=== PATIENT | male | born 1980 | race Two or more races ===

== ENCOUNTER 2017-03-15 10:19 | Emergency (ER) | payer OTHER ==
[2017-03-15 10:33] VITALS: BMI 26.6
--- NOTE | 2017-03-15 11:33 | PDOC ---
History of Present Illness - General History Source: Patient Exam Limitations: No Limitations - History of Present Illness Occurred: reports: just prior to arrival Severity: reports: moderate Pain Location: reports: upper extremity (left index, left middle finger) Method of Injury: Yes: fall (unto metal on the floor, sustaining laceration to left palmar finger and left index palmar finger at work ) Modifying Factors: improves with: None Loss of Consciousness: no loss of consciousness Associated Symptoms (Fall): denies symptoms <Sonia Ricks - Last Filed: 03/15/17 11:19> <Gerry Reddy - Last Filed: 03/15/17 16:46> - General Chief Complaint: Injury Stated Complaint: LT FINGER LACERATION Time Seen by Provider: 03/15/17 10:55 Past History - Past Medical History Other medical history: denies - Psycho/Social/Smoking Cessation Hx Suicidal Ideation: No Smoking History: Never smoked Information on smoking cessation initiated: No Hx Alcohol Use: No Drug/Substance Use Hx: No Substance Use Type: None <Sonia Ricks - Last Filed: 03/15/17 11:19> <Gerry Reddy - Last Filed: 03/15/17 16:46> - Past Medical History Allergies/Adverse Reactions: Allergies Allergy/AdvReac Type Severity Reaction Status Date / Time Penicillins Allergy Verified 03/15/17 10:35 tetracycline Allergy Verified 03/15/17 10:35 Home Medications: Ambulatory Orders Clindamycin [Cleocin -] 450 mg PO TID #21 capsule 03/15/17 Review of Systems - Review of Systems Able to Perform ROS?: Yes Constitutional: No: Symptoms Reported HEENTM: No: Symptoms Reported Respiratory: No: Symptoms reported Cardiac (ROS): No: Symptoms Reported ABD/GI: No: Symptoms Reported : No: Symptoms Reported Integumentary: Yes: Other (left midde palmar finger flap laceration, left palmar index finger laceration) Neurological: No: Symptoms reported <Sonia Ricks - Last Filed: 03/15/17 11:19> *Physical Exam - Vital Signs Last Vital Signs Temp Pulse Resp BP Pulse Ox 98.6 F 110 H 19 148/92 100 03/15/17 10:32 03/15/17 10:32 03/15/17 10:32 03/15/17 10:32 03/15/17 10:32 - Physical Exam General Appearance: Yes: Appropriately Dressed Comments:: 03/15/17 11:35 radial pulse left 2 + Extremity: positive: Normal Capillary Refill, Normal Range of Motion (left index finger, left middle full range dip, pip, mcp jt), Tender (left ). negative: Normal Inspection (left middle, index finger) Integumentary: positive: Other (flap left middle finger palmar aspect, left index finger palmar aspect laceration ) <Sonia Ricks - Last Filed: 03/15/17 11:19> - Vital Signs Last Vital Signs Temp Pulse Resp BP Pulse Ox 98.2 F 92 H 18 140/88 99 03/15/17 16:14 03/15/17 16:14 03/15/17 16:14 03/15/17 16:14 03/15/17 16:14 <Gerry Reddy - Last Filed: 03/15/17 16:46> Procedures - Laceration/Wound Repair Left 3rd digit Wound Length: 5.0 to 7.5 cm Wound Explored: contaminated, foreign body removed Wound's Depth, Shape: flap Irrigated w/ Saline: Yes Anesthesia: 1% Lidocaine Amount of Anesthetic (ccs): 5 Wound Debrided: moderate Wound Repaired With: Sutures Suture Size/Type: 4:0, proline Number of Sutures: 17 Layer Closure: No Sterile Dressing Applied: Yes Splint Applied: Yes Left 2nd digit Wound Length: 2.6 to 5.0 cm Wound Explored: contaminated, foreign body removed Wound's Depth, Shape: flap Irrigated w/ Saline: Yes Anesthesia: 1% Lidocaine Amount of Anesthetic (ccs): 8 Wound Debrided: moderate Wound Repaired With: Sutures Suture Size/Type: 4:0, proline Number of Sutures: 5 Layer Closure: No Sterile Dressing Applied: Yes Splint Applied: Yes <Gerry Reddy - Last Filed: 03/15/17 16:46> ED Treatment Course - RADIOLOGY Radiology Studies Ordered: Category Date Time Status HAND- LEFT [RAD] Stat Radiology 03/15/17 11:14 Ordered <Sonia Ricks - Last Filed: 03/15/17 11:19> - Medications Given in the ED: ED Medications Discontinued Medications Generic Name Dose Route Start Last Admin Trade Name Freq PRN Reason Stop Dose Admin Oxycodone/Acetaminophen 2 combo 03/15/17 11:15 03/15/17 11:25 Percocet 5/325 - PO 03/15/17 11:16 2 combo ONCE ONE Administration <Gerry Reddy - Last Filed: 03/15/17 16:46> *DC/Admit/Observation/Transfer <Sonia Ricks - Last Filed: 03/15/17 11:19> <Gerry Reddy - Last Filed: 03/15/17 16:46> Diagnosis at time of Disposition: Laceration - Discharge Dispostion Disposition: HOME Condition at time of disposition: Good - Prescriptions Prescriptions: Clindamycin [Cleocin -] 450 mg PO TID #21 capsule - Patient Instructions Printed Discharge Instructions: DI for Laceration Repair -- Complex Suture
--- NOTE | 2017-03-15 11:48 | PDOC ---
History of Present Illness - General Chief Complaint: Injury Stated Complaint: LT FINGER LACERATION Time Seen by Provider: 03/15/17 10:55 Past History - Past Medical History Allergies/Adverse Reactions: Allergies Allergy/AdvReac Type Severity Reaction Status Date / Time Penicillins Allergy Verified 03/15/17 10:35 tetracycline Allergy Verified 03/15/17 10:35 Home Medications: Ambulatory Orders NK [No Known Home Medication] 03/15/17 Other medical history: denies - Psycho/Social/Smoking Cessation Hx Suicidal Ideation: No Smoking History: Never smoked Information on smoking cessation initiated: No Hx Alcohol Use: No Drug/Substance Use Hx: No Substance Use Type: None *Physical Exam - Vital Signs Last Vital Signs Temp Pulse Resp BP Pulse Ox 98.6 F 110 H 19 148/92 100 03/15/17 10:32 03/15/17 10:32 03/15/17 10:32 03/15/17 10:32 03/15/17 10:32 ED Treatment Course - Medications Given in the ED: ED Medications Discontinued Medications Generic Name Dose Route Start Last Admin Trade Name Nehal PRN Reason Stop Dose Admin Oxycodone/Acetaminophen 2 combo 03/15/17 11:15 03/15/17 11:25 Percocet 5/325 - PO 03/15/17 11:16 2 combo ONCE ONE Administration
--- NOTE | 2017-03-15 12:11 | PDOC ---
*Physical Exam - Vital Signs Last Vital Signs Temp Pulse Resp BP Pulse Ox 98.6 F 110 H 19 148/92 100 03/15/17 10:32 03/15/17 10:32 03/15/17 10:32 03/15/17 10:32 03/15/17 10:32 <Gerry Reddy - Last Filed: 03/15/17 15:47> - Vital Signs Last Vital Signs Temp Pulse Resp BP Pulse Ox 98.6 F 110 H 19 148/92 100 03/15/17 10:32 03/15/17 10:32 03/15/17 10:32 03/15/17 10:32 03/15/17 10:32 <Rosey Sharma - Last Filed: 03/16/17 20:15> ED Treatment Course - Medications Given in the ED: ED Medications Discontinued Medications Generic Name Dose Route Start Last Admin Trade Name Freq PRN Reason Stop Dose Admin Oxycodone/Acetaminophen 2 combo 03/15/17 11:15 03/15/17 11:25 Percocet 5/325 - PO 03/15/17 11:16 2 combo ONCE ONE Administration <Gerry Reddy - Last Filed: 03/15/17 15:47> - Medications Given in the ED: ED Medications Discontinued Medications Generic Name Dose Route Start Last Admin Trade Name Freq PRN Reason Stop Dose Admin Oxycodone/Acetaminophen 2 combo 03/15/17 11:15 03/15/17 11:25 Percocet 5/325 - PO 03/15/17 11:16 2 combo ONCE ONE Administration <Rosey Sharma - Last Filed: 03/16/17 20:15> Medical Decision Making - Medical Decision Making Pt transferred from to main ED for complicated lac repair. The hand was covered with plaster initially, cleaned with peroxide and water. Digital block was done on the two lacerated fingers prior to removing the plaster due to pain. Small bits of plaster had to be removed from the wounds. Wounds were washed out, then repaired as per lac note. Will place on prophylactic abx. Last tetanus 1 year ago, up to date. <Rosey Sharma - Last Filed: 03/16/17 20:15> *DC/Admit/Observation/Transfer - Discharge Dispostion Admit: No <Gerry Reddy - Last Filed: 03/15/17 15:47> <Rosey Sharma - Last Filed: 03/16/17 20:15> Diagnosis at time of Disposition: Laceration - Discharge Dispostion Disposition: HOME Condition at time of disposition: Good - Prescriptions Prescriptions: Clindamycin [Cleocin -] 450 mg PO TID #21 capsule - Patient Instructions Printed Discharge Instructions: DI for Laceration Repair -- Complex Suture
[2017-03-15] MEDS ORDERED: LIDOCAINE HCL 1%, 10 MG/ML (20ML VIAL) ONE (13:01)
[2017-03-15 16:22] VITALS: BP 140/88; PULSE 92; TEMP 98.2
== END 2017-03-15 16:22 | disposition home or self-care (01) ==
LOC: JERFT 10:19 → JER 10:19
PROC: 0HQGXZZ Repair Left Hand Skin, External Approach (ICD-10-PCS; principal; 2017-03-15)
DX: S61.213A Laceration without foreign body of left middle finger without damage to nail, initial encounter (principal); S61.211A Laceration without foreign body of left index finger without damage to nail, initial encounter; W45.8XXA Other foreign body or object entering through skin, initial encounter; Y93.9 Activity, unspecified; Y92.9 Unspecified place or not applicable; Y99.0 Civilian activity done for income or pay
CPT/HCPCS: 73130-TC-LT; 99282-25